=== PATIENT | female | born 1960 | race Caucasian/White ===

== ENCOUNTER → 2018-03-18 | Outpatient (CLI) | payer MEDICARE, MEDICAID ==
[2018-03-18 12:06] LABS: ABSOLUTE EOSINOPHILS # (AUTO) 0.1 10^3/uL (0.0-0.6); ABSOLUTE LYMPHOCYTES (AUTO) 1.5 10^3/uL (0.5-4.7); ABSOLUTE MONOCYTES (AUTO) 0.3 10^3/uL (0.1-1.4); ABSOLUTE NEUT (AUTO) 7.5 10^3/uL (1.7-8.2); BASOPHILS % (AUTO) 0.5 % (0-2); EOSINOPHILS % (AUTO) 1.1 % (0-6); HEMATOCRIT 33.3 % (36.0-47.0); HEMOGLOBIN 11.5 g/dL (12.0-15.5); LYMPHOCYTES % (AUTO) 15.7 % (13-45); MEAN CORPUSCULAR HEMOGLOBIN 34.6 pg (27.0-33.4); MEAN CORPUSCULAR HGB CONC 34.4 g/dL (32.0-36.0); MEAN CORPUSCULAR VOLUME 101 fl (80-97); MONOCYTES % (AUTO) 3.2 % (3-13); PLATELET COUNT 178 10^3/uL (150-450); RED BLOOD COUNT 3.31 10^6/uL (3.72-5.28); RED CELL DISTRIBUTION WIDTH 13.7 % (11.5-14.0); SEGMENTED NEUTROPHILS % (AUTO) 79.5 % (42-78); TOTAL CELLS COUNTED % (AUTO) 100 %; WHITE BLOOD COUNT 9.5 10^3/uL (4.0-10.5)
[2018-03-18 12:28] LABS: ANION GAP 12 (5-19); BLOOD UREA NITROGEN 13 mg/dL (7-20); C-REACTIVE PROTEIN 8.9 mg/L (<10.0); CALCIUM 9.3 mg/dL (8.4-10.2); CARBON DIOXIDE 20 mmol/L (22-30); CHLORIDE 107 mmol/L (98-107); GLUCOSE 85 mg/dL (75-110); POTASSIUM 4.1 mmol/L (3.6-5.0); SODIUM 139.3 mmol/L (137-145)
[2018-03-18 12:48] LABS: ERYTHROCYTE SEDIMENTATION RATE 30 mm/hr (0-30)
== END ==
LOC: OD 10:50
PROVIDERS: ATTEND Orthopaedic Surgery
DX: M25.561 Pain in right knee (principal)
CPT/HCPCS: 36415; 80048; 85025; 85652; 86140

== ENCOUNTER → 2018-08-06 | Outpatient (CLI) | payer MEDICARE, MEDICAID ==
[2018-08-06 12:01] LABS: ABSOLUTE EOSINOPHILS # (AUTO) 0.1 10^3/uL (0.0-0.6); ABSOLUTE LYMPHOCYTES (AUTO) 1.4 10^3/uL (0.5-4.7); ABSOLUTE MONOCYTES (AUTO) 0.4 10^3/uL (0.1-1.4); ABSOLUTE NEUT (AUTO) 4.5 10^3/uL (1.7-8.2); BASOPHILS % (AUTO) 0.4 % (0-2); EOSINOPHILS % (AUTO) 1.5 % (0-6); HEMATOCRIT 36.4 % (36.0-47.0); HEMOGLOBIN 12.7 g/dL (12.0-15.5); LYMPHOCYTES % (AUTO) 22.3 % (13-45); MEAN CORPUSCULAR HEMOGLOBIN 34.8 pg (27.0-33.4); MEAN CORPUSCULAR HGB CONC 34.8 g/dL (32.0-36.0); MEAN CORPUSCULAR VOLUME 100 fl (80-97); PLATELET COUNT 144 10^3/uL (150-450); RED BLOOD COUNT 3.65 10^6/uL (3.72-5.28); RED CELL DISTRIBUTION WIDTH 13.9 % (11.5-14.0); SEGMENTED NEUTROPHILS % (AUTO) 69.8 % (42-78); TOTAL CELLS COUNTED % (AUTO) 100 %; WHITE BLOOD COUNT 6.5 10^3/uL (4.0-10.5)
[2018-08-06 12:13] LABS: APPEARANCE,URINE SLIGHTLY-CLOUDY; BILIRUBIN,URINE NEGATIVE (NEGATIVE); COLOR,URINE YELLOW; GLUCOSE, URINE NEGATIVE (NEGATIVE); KETONES,URINE TRACE mg/dL (NEGATIVE); LEUKOCYTE ESTERASE,URINE NEGATIVE (NEGATIVE); NITRITE,URINE NEGATIVE (NEGATIVE); PROTEIN,URINE NEGATIVE (NEGATIVE); URINE SPECIFIC GRAVITY 1.017; UROBILINOGEN,URINE NEGATIVE mg/dL (<2.0)
[2018-08-06 12:25] LABS: ANION GAP 14 (5-19); BLOOD UREA NITROGEN 11 mg/dL (7-20); CALCIUM 9.4 mg/dL (8.4-10.2); CARBON DIOXIDE 19 mmol/L (22-30); CHLORIDE 104 mmol/L (98-107); GLUCOSE 92 mg/dL (75-110); POTASSIUM 4.5 mmol/L (3.6-5.0); SODIUM 137.3 mmol/L (137-145)
--- NOTE | 2018-08-06 12:44 | RADIOLOGY REPORT (SQ) ---
EXAM DESCRIPTION: CHEST PA/LATERAL COMPLETED DATE/TIME: 08/06/2018 11:28 am REASON FOR STUDY: PRE-OP COMPARISON: None. TECHNIQUE: Frontal and lateral radiographic views of the chest acquired. NUMBER OF VIEWS: Two view. LIMITATIONS: None. FINDINGS: LUNGS AND PLEURA: No opacities, masses or pneumothorax. No pleural effusion. MEDIASTINUM AND HILAR STRUCTURES: No masses or contour abnormalities. HEART AND VASCULAR STRUCTURES: Heart normal size. No evidence for failure. BONES: No acute findings. HARDWARE: None in the chest. OTHER: No other significant finding. IMPRESSION: NO SIGNIFICANT RADIOGRAPHIC FINDING IN THE CHEST. TECHNICAL DOCUMENTATION: JOB ID: [id number] [employer]- All Rights Reserved Reading location - IP/workstation name: [email or web address]
--- NOTE | 2018-08-07 07:49 | EKG REPORT ---
SEVERITY:- NORMAL ECG - SINUS RHYTHM : Confirmed by: Vilma Vang MD 07-Aug-2018 07:49:03
== END ==
LOC: OD 10:49
PROVIDERS: ATTEND Orthopaedic Surgery
DX: Z01.810 Encounter for preprocedural cardiovascular examination (principal); Z01.812 Encounter for preprocedural laboratory examination; Z01.818 Encounter for other preprocedural examination
CPT/HCPCS: 36415; 71046; 80048; 81001; 85025; 93005; 93010

== ENCOUNTER 2018-08-30 05:32 | Inpatient (IN) | payer MEDICARE, MEDICAID ==
[~2018-08-30 05:32] MED LIST: BUPIVACAINE INJ/PF LIPOSOME/PF 266 MG/20 ML SDV IJ PRN; CEFAZOLIN INJ 1 GM VIAL IV PRN; IBUPROFEN 800 MG/NS 250 ML IV PRN; LACTATED RINGERS 1000 ML IV PRN; LANSOPRAZOLE 15 MG TAB.RAP.DR PO PRN; LIDOCAINE 0.5% INJ-PF (5 MG/ML) 50 ML SDV SUBCUT PRN; OXYCODONE HCL SR 10 MG TABLET PO PRN; VANCOMYCIN HCL 1,000 MG in DEXTROSE 5%-WATER 250 ML IV PRN
[2018-08-30] MEDS ORDERED: CEFAZOLIN INJ 1 GM VIAL ONE (05:45)
[2018-08-30] MEDS ORDERED: OXYCODONE HCL SR 10 MG TABLET PO ONE (05:45)
[2018-08-30] MEDS ORDERED: LANSOPRAZOLE 15 MG TAB.RAP.DR ONE (05:45)
[2018-08-30] MEDS ORDERED: MIDAZOLAM 2 MG/2 ML INJ ONE (06:27)
[2018-08-30] MEDS ORDERED: FENTANYL CITRATE INJ/PF 100 MCG/2 ML AMPUL ONE (06:27)
[2018-08-30] MEDS ORDERED: ONDANSETRON HCL INJ/PF 4 MG/2 ML SDV ONE (06:27)
[2018-08-30] MEDS ORDERED: DEXAMETHASONE SOD PHOSPHATE INJ 4 MG/1 ML VIAL ONE (06:27)
[2018-08-30] MEDS ORDERED: LIDOCAINE 2% INJ-PF (20 MG/ML) 10 ML AMPUL ONE (06:27)
[2018-08-30] MEDS ORDERED: PROPOFOL INJ 200 MG/20 ML VIAL IV ONE (06:28)
[2018-08-30] MEDS ORDERED: ACETAMINOPHEN 1,000 MG/100 ML RTUPB IV ONE (06:28)
[2018-08-30] MEDS ORDERED: BUPIVACAINE HCL/DEX-WATER/PF 15 MG/2 ML AMPULE ONE (06:29)
[2018-08-30] MEDS ORDERED: BUPIVACAINE HCL 0.25% /EPINEPHRINE INJ/PF 30 ML SDV ONE (07:08)
[2018-08-30] MEDS ORDERED: THROMBIN (BOVINE) TOPICAL 20000 UNIT VIAL ONE (07:08)
[2018-08-30] MEDS ORDERED: VANCOMYCIN HCL INJ 1000 MG VIAL ONE (07:33)
[2018-08-30] MEDS ORDERED: DIPHENHYDRAMINE HCL 50 MG/ML VIAL IV PRN ×2 (08:05→09:04)
[2018-08-30] MEDS ORDERED: PROMETHAZINE HCL INJ 25 MG/1 ML VIAL IV PRN ×2 (08:05)
[2018-08-30] MEDS ORDERED: ONDANSETRON HCL INJ/PF 4 MG/2 ML SDV IV PRN ×2 (08:05→09:04)
[2018-08-30] MEDS ORDERED: FENTANYL CITRATE INJ/PF 100 MCG/2 ML AMPUL IV PRN ×3 (08:05)
[2018-08-30] MEDS ORDERED: MEPERIDINE HCL/PF INJ 25 MG/1 ML DISP.SYRIN IV PRN (08:05)
[2018-08-30] MEDS ORDERED: MORPHINE SULFATE 10 MG/ML INJ IV PRN ×4 (08:05→09:04)
--- NOTE | 2018-08-30 09:03 | Operative Report ---
Operative Report DATE OF SURGERY: 08/30/18 PREOPERATIVE DIAGNOSIS: Failed right lateral unicompartmental knee arthroplasty OPERATION: Revision right knee arthroplasty SURGEON: INES BAEZ ANESTHESIA: GA TISSUE REMOVED OR ALTERED: Implants to CSS, cultures to micro, bone to pathology ESTIMATED BLOOD LOSS: 100 PROCEDURE: Implants used: Femur: Joyce triathlon size 4 PS femur Tibia: 4 tibia with a 50 mm stem Tibial liner: 13 mm PS insert Patella: 35 mm oval patella Procedure with the patient supine on the operating table the right the limb is prepped and draped in a sterile fashion. The limb was elevated for exsanguination and the tourniquet inflated to 280 torr. The patient has had a extensive lateral parapatellar incision in the past and this is utilized again. The capsule was opened and cultures were sent x2 to microbiology. The underlying lateral femoral condyle implant is mobilizing using a TPS saw and then removed with an osteotome. Access is obtained to the femoral canal through the intracondylar notch and intramedullary minutes mentation is used to resect 10 mm of distal femur in 5 degrees of valgus. Sizing guide indicates a size 4 femur and appropriate cutting jig is then used to fashion anterior posterior and chamfer cuts. A posterior stabilized box was next cut. A trial reduction femur was performed and felt to be adequate. Attention was now turned to the tibia. Using an extramedullary alignment system 9 mm resected off the ileal tibial plateau. This resulted in just a shaving of the lateral tibial plateau. The tibia was then prepared using a series of reamers and punches to accept the tibial keel. A trial reduction of the tibia is performed this is judged to be adequate. Next the femur is placed in position followed by the tibia with a 13 mm tibial PS spacer. This gives full extension and central patellofemoral tracking. The articular surface of the patella was resected using oscillating saws. The articular surfaces were copiously irrigated with pulse lavage. Subsequent polymethylmethacrylate with vancomycin is mixed. Vancomycin is used because of the patient's HIV status and the fact that she is immunocompromise. PMMA was then used to cement the above implants in place. Following adequate curing of cement excess cement was removed. The tourniquet is deflated. The wound is manjinder care with pulse lavage. Hemostasis obtained with electrocautery. The final 13 mm PS insert is impacted into the tibia. The wound was then closed in layers using interrupted Vicryl on the capsule and nylon on the skin. Patient's return to the PACU in satisfactory condition.
[2018-08-30] MEDS ORDERED: ACETAMINOPHEN 325 MG TABLET PO PRN (09:04)
[2018-08-30] MEDS ORDERED: ONDANSETRON 4 MG TAB.RAPDIS PO PRN (09:04)
[2018-08-30] MEDS ORDERED: MAG HYDROX/AL HYDROX/SIMETH SUSP 30 ML UDCUP PO PRN (09:04)
[2018-08-30] MEDS ORDERED: RINGERS SOLUTION,LACTATED 1,000 ML IV PRN (09:04)
[2018-08-30] MEDS ORDERED: MORPHINE SULFATE 10 MG/ML INJ ONE (09:38)
[2018-08-30] MEDS ORDERED: (PENDING PHARMACY ID) (Quetiapine Fumarate [Seroquel] 50 MG) PO SCH (10:00)
[2018-08-30] MEDS ORDERED: (PENDING PHARMACY ID) (Dolutegravir Sodium [Tivicay] 50 MG) PO SCH (10:00)
[2018-08-30] MEDS ORDERED: ARIPIPRAZOLE 15 MG PO SCH (10:00)
[2018-08-30] MEDS ORDERED: (PENDING PHARMACY ID) (Emtricitabine/Tenofov Alafenam [Descovy 200-25 Mg Tablet] 1 TAB) PO SCH (10:00)
[2018-08-30] MEDS ORDERED: (PENDING PHARMACY ID) (Fluoxetine Hcl [Fluoxetine Hcl] 80 MG) PO SCH (10:00)
[2018-08-30] MEDS ORDERED: TRANEXAMIC ACID INJ/PF 1,000 MG/10 ML SDV IV ONE ×2 (10:23→11:00)
--- NOTE | 2018-08-30 10:24 | RADIOLOGY REPORT (SQ) ---
EXAM DESCRIPTION: KNEE RIGHT 2 VIEWS COMPLETED DATE/TIME: 08/30/2018 10:08 am REASON FOR STUDY: Post OP -Long Cassette in PACU M17.11 UNILATERAL PRIMARY OSTEOARTHRITIS, RIGHT KN EE COMPARISON: None. NUMBER OF VIEWS: Two views portable, right knee TECHNIQUE: Digital radiographic images of the right knee post-procedure. LIMITATIONS: None. FINDINGS: BONES: No worrisome or unexpected findings post-procedure. DEVICE: Cemented total knee replacement with patellar resurfacing. SOFT TISSUES: No worrisome findings. Expected postoperative soft tissue changes. IMPRESSION: SATISFACTORY POSTOPERATIVE RIGHT KNEE. TECHNICAL DOCUMENTATION: JOB ID: [id number] [employer]- All Rights Reserved Reading location - IP/workstation name: [email or web address]
[2018-08-30] MEDS ORDERED: PHENYLEPHRINE HCL INJ/PF 10 MG/1 ML SDV ONE (12:39)
[2018-08-30] MEDS: MORPHINE SULFATE 10 MG/ML INJ IV PRN ×2 (13:36→19:04)
[2018-08-30] MEDS: BENZTROPINE MESYLATE 1 MG TABLET PO SCH (14:19)
[2018-08-30] MEDS: ASPIRIN 81 MG TABLET, ENT COATED PO SCH (14:20)
[2018-08-30] MEDS: SENNOSIDES/DOCUSATE 8.6-50 MG 1 EACH TABLET PO SCH ×2 (14:20→19:04)
[2018-08-30] MEDS: PRENATAL VITAMIN W DHA CAPSULE PO SCH (14:20)
[2018-08-30] MEDS: IBUPROFEN 800 MG in NORMAL SALINE 250 ML IV SCH ×2 (16:02→22:01)
[2018-08-30] MEDS: OXYCODONE HCL IR 5 MG TABLET PO PRN (16:14)
[2018-08-30] MEDS: GABAPENTIN 400 MG CAPSULE PO SCH ×2 (19:04→23:32)
[2018-08-30] MEDS ORDERED: VANCOMYCIN HCL 1,000 MG in DEXTROSE 5%-WATER 250 ML IV ONE (21:00)
[2018-08-30] MEDS: OXYCODONE HCL SR 10 MG TABLET PO SCH (22:00)
[2018-08-30] MEDS ORDERED: QUETIAPINE FUMARATE 25 MG TABLET PO PRN (22:23)
[2018-08-30] MEDS ORDERED: TRAZODONE HCL 50 MG TABLET PO ONE (23:00)
[2018-08-31] MEDS: IBUPROFEN 800 MG in NORMAL SALINE 250 ML IV SCH ×3 (05:55→21:15)
[2018-08-31] MEDS: GABAPENTIN 400 MG CAPSULE PO SCH ×3 (05:58→17:05)
[2018-08-31] MEDS: LEVOTHYROXINE SODIUM 0.05 MG TABLET PO SCH (05:58)
[2018-08-31] MEDS: LANSOPRAZOLE 15 MG TAB.RAP.DR PO SCH (06:01)
[2018-08-31] MEDS: LANSOPRAZOLE 30 MG TAB.RAP.DR PO SCH (06:01)
[2018-08-31 06:16] LABS: HEMATOCRIT 25.5 % (36.0-47.0); HEMOGLOBIN 8.8 g/dL (12.0-15.5); MEAN CORPUSCULAR HGB CONC 34.4 g/dL (32.0-36.0); MEAN CORPUSCULAR VOLUME 102 fl (80-97); PLATELET COUNT 108 10^3/uL (150-450); RED CELL DISTRIBUTION WIDTH 13.4 % (11.5-14.0); WHITE BLOOD COUNT 5.3 10^3/uL (4.0-10.5)
[2018-08-31 06:36] LABS: ANION GAP 6 (5-19); BLOOD UREA NITROGEN 8 mg/dL (7-20); CALCIUM 8.4 mg/dL (8.4-10.2); CARBON DIOXIDE 24 mmol/L (22-30); CHLORIDE 107 mmol/L (98-107); GLUCOSE 102 mg/dL (75-110); POTASSIUM 3.8 mmol/L (3.6-5.0); SODIUM 136.9 mmol/L (137-145)
--- NOTE | 2018-08-31 07:23 | PDOC PROGRESS REPORT ---
Subjective Progress Note for:: 08/31/18 Reason For Visit: FAILED RIGHT KNEE ARTHROPLASTY 57-year-old white female, HIV positive, postop day 1 status post right knee revision arthroplasty. Patient complained of pain overnight. Physical Exam Vital Signs: Temp Pulse Resp BP Pulse Ox 37.1 C 78 18 93/54 L 90 L 08/31/18 03:43 08/31/18 03:43 08/31/18 03:43 08/31/18 03:43 08/31/18 03:43 Intake & Output 08/30/18 08/31/18 09/01/18 06:59 06:59 06:59 Intake Total 0 4987 Output Total 2500 Balance 0 2487 Weight 96 kg General appearance: PRESENT: mild distress, well-developed, well-nourished Head exam: PRESENT: normocephalic Respiratory exam: PRESENT: unlabored Cardiovascular exam: PRESENT: RRR Pulses: PRESENT: +1 pedal pulses bilateral Vascular exam: PRESENT: normal capillary refill GI/Abdominal exam: PRESENT: soft Rectal exam: PRESENT: deferred Extremities exam: PRESENT: other - Right lower extremity dressing clean dry and intact. Distal neurovascular examination is intact. Neurological exam: PRESENT: alert, awake, oriented to person, oriented to place, oriented to time, oriented to situation. ABSENT: motor sensory deficit Psychiatric exam: PRESENT: appropriate affect, normal mood. ABSENT: homicidal ideation, suicidal ideation Skin exam: PRESENT: dry, intact, warm. ABSENT: cyanosis, rash Results Laboratory Results: 08/31/18 05:37 08/31/18 05:37 08/31/18 08/31/18 05:37 05:37 WBC 5.3 RBC 2.50 L Hgb 8.8 L Hct 25.5 L MCV 102 H MCH 35.0 H MCHC 34.4 RDW 13.4 Plt Count 108 L Sodium 136.9 L Potassium 3.8 Chloride 107 Carbon Dioxide 24 Anion Gap 6 BUN 8 Creatinine 0.60 Est GFR ( Amer) > 60 Est GFR (Non-Af Amer) > 60 Glucose 102 Calcium 8.4 Impressions: Knee X-Ray 08/30/18 09:05 IMPRESSION: SATISFACTORY POSTOPERATIVE RIGHT KNEE. Status: Imported from PACS Assessment & Plan - Diagnosis (1) Mechanical complication of knee prosthesis Qualifiers: Encounter type: initial encounter Qualified Code(s): T84.098A - Other mechanical complication of other internal joint prosthesis, initial encounter; Z96.659 - Presence of unspecified artificial knee joint Is this a current diagnosis for this admission?: Yes Plan: Patient to be mobilized with physical therapy and weightbearing as tolerated basis. Anticipate the need for shelter facility placement when bed available. - Time Time Spent with patient: 15-24 minutes Anticipated discharge: SNF Within: when bed available
[2018-08-31] MEDS: OXYCODONE HCL IR 5 MG TABLET PO PRN ×2 (07:36→13:36)
[2018-08-31] MEDS: PRENATAL VITAMIN W DHA CAPSULE PO SCH (09:35)
[2018-08-31] MEDS: SENNOSIDES/DOCUSATE 8.6-50 MG 1 EACH TABLET PO SCH ×2 (09:35→17:05)
[2018-08-31] MEDS: FLUOXETINE HCL 20 MG CAPSULE PO SCH (09:36)
[2018-08-31] MEDS: ASPIRIN 81 MG TABLET, ENT COATED PO SCH (09:36)
[2018-08-31] MEDS: BENZTROPINE MESYLATE 1 MG TABLET PO SCH (09:36)
[2018-08-31] MEDS: QUETIAPINE FUMARATE 25 MG TABLET PO SCH (09:37)
[2018-08-31] MEDS: ARIPIPRAZOLE 5 MG TABLET PO SCH (09:37)
[2018-08-31] MEDS: OXYCODONE HCL SR 10 MG TABLET PO SCH ×2 (09:37→21:13)
[2018-08-31] MEDS: MORPHINE SULFATE 10 MG/ML INJ IV PRN (17:04)
[2018-08-31] MEDS: TRAZODONE HCL 50 MG TABLET PO SCH (21:13)
[2018-09-01] MEDS: GABAPENTIN 400 MG CAPSULE PO SCH ×4 (00:14→18:10)
[2018-09-01] MEDS: MORPHINE SULFATE 10 MG/ML INJ IV PRN ×3 (00:15→21:14)
[2018-09-01] MEDS: LEVOTHYROXINE SODIUM 0.05 MG TABLET PO SCH (05:05)
[2018-09-01] MEDS: LANSOPRAZOLE 30 MG TAB.RAP.DR PO SCH (05:06)
[2018-09-01] MEDS: IBUPROFEN 800 MG in NORMAL SALINE 250 ML IV SCH (05:07)
[2018-09-01] MEDS: LANSOPRAZOLE 15 MG TAB.RAP.DR PO SCH (05:11)
[2018-09-01 06:05] LABS: HEMATOCRIT 25.1 % (36.0-47.0); HEMOGLOBIN 8.6 g/dL (12.0-15.5); MEAN CORPUSCULAR HEMOGLOBIN 35.2 pg (27.0-33.4); MEAN CORPUSCULAR HGB CONC 34.5 g/dL (32.0-36.0); MEAN CORPUSCULAR VOLUME 102 fl (80-97); PLATELET COUNT 119 10^3/uL (150-450); RED BLOOD COUNT 2.45 10^6/uL (3.72-5.28); RED CELL DISTRIBUTION WIDTH 13.4 % (11.5-14.0); WHITE BLOOD COUNT 5.7 10^3/uL (4.0-10.5)
[2018-09-01] MEDS: SENNOSIDES/DOCUSATE 8.6-50 MG 1 EACH TABLET PO SCH ×2 (11:00→18:10)
[2018-09-01] MEDS: OXYCODONE HCL SR 10 MG TABLET PO SCH (11:00)
[2018-09-01] MEDS: FLUOXETINE HCL 20 MG CAPSULE PO SCH (11:00)
[2018-09-01] MEDS: ASPIRIN 81 MG TABLET, ENT COATED PO SCH (11:00)
[2018-09-01] MEDS: ARIPIPRAZOLE 5 MG TABLET PO SCH (11:00)
[2018-09-01] MEDS: PRENATAL VITAMIN W DHA CAPSULE PO SCH (11:00)
[2018-09-01] MEDS: BENZTROPINE MESYLATE 1 MG TABLET PO SCH (11:00)
[2018-09-01] MEDS: Dolutegravir Sodium [Tivicay] 50 MG PO SCH (11:01)
[2018-09-01] MEDS: QUETIAPINE FUMARATE 25 MG TABLET PO SCH (11:01)
[2018-09-01] MEDS: Emtricitabine/Tenofov Alafenam [Descovy 200-25 Mg Tablet] PO SCH (11:01)
[2018-09-01] MEDS: OXYCODONE HCL IR 5 MG TABLET PO PRN (18:10)
[2018-09-01] MEDS: NICOTINE 14 MG/24 HR PATCH.TD24 TD SCH (18:18)
[2018-09-01] MEDS: TRAZODONE HCL 50 MG TABLET PO SCH (21:07)
[2018-09-02] MEDS: GABAPENTIN 400 MG CAPSULE PO SCH ×3 (00:30→12:43)
[2018-09-02] MEDS: LEVOTHYROXINE SODIUM 0.05 MG TABLET PO SCH (05:08)
[2018-09-02] MEDS: LANSOPRAZOLE 30 MG TAB.RAP.DR PO SCH (05:09)
[2018-09-02] MEDS: LANSOPRAZOLE 15 MG TAB.RAP.DR PO SCH (05:09)
[2018-09-02] MEDS: MORPHINE SULFATE 10 MG/ML INJ IV PRN (05:16)
[2018-09-02 06:48] LABS: HEMOGLOBIN 8.2 g/dL (12.0-15.5); MEAN CORPUSCULAR HEMOGLOBIN 34.9 pg (27.0-33.4); MEAN CORPUSCULAR HGB CONC 34.1 g/dL (32.0-36.0); MEAN CORPUSCULAR VOLUME 102 fl (80-97); PLATELET COUNT 116 10^3/uL (150-450); RED BLOOD COUNT 2.34 10^6/uL (3.72-5.28); RED CELL DISTRIBUTION WIDTH 13.4 % (11.5-14.0); WHITE BLOOD COUNT 5.6 10^3/uL (4.0-10.5)
--- NOTE | 2018-09-02 07:03 | PDOC TRANSFER SUMMARY ---
General - Admit/Disc Date/PCP Admission Date/Primary Care Provider: 08/30/18 05:32 NANCI GRECO MD Discharge Date: 09/02/18 - Discharge Diagnosis (1) Mechanical complication of knee prosthesis Is this a current diagnosis for this admission?: Yes - Additional Information Resuscitation Status: Full Code Home Medications: Aripiprazole 15 mg PO DAILY 08/19/18 Benztropine Mesylate [Cogentin 1 mg Tablet] 1 mg PO DAILY 08/19/18 Clonidine HCl [Catapres] 0.5 mg PO BIDP PRN 08/19/18 Dolutegravir Sodium [Tivicay] 50 mg PO DAILY 08/19/18 Emtricitabine/Tenofov Alafenam [Descovy 200-25 mg Tablet] 1 tab PO DAILY 08/19/18 Fluoxetine HCl 80 mg PO DAILY 08/19/18 Gabapentin [Neurontin] 800 mg PO Q8 08/19/18 Levothyroxine Sodium 50 mcg PO DAILY 08/19/18 Omeprazole 20 mg PO DAILY 08/19/18 Quetiapine Fumarate [Seroquel] 50 mg PO DAILYP PRN 08/19/18 Tramadol HCl [Ultram] 50 mg PO Q6HP PRN 08/19/18 Trazodone HCl [Desyrel] 300 mg PO QHS 08/30/18 History of Present Illness Admission Date/PCP: 08/30/18 05:32 NANCI GRECO MD History of Present Illness: AMEBRLY HOUSTON is a 57 year old female Patient is a 57-year-old white female status post unicompartmental right knee arthroplasty in the past now with progressive knee pain and functional dis ability secondary to progressive arthritis. Patient is admitted for elective revision arthroplasty. Hospital Course Hospital Course: Patient is admitted through the operating where she undergoes a uncomplicated right knee revision arthroplasty. She is returned to floor in satisfactory condition. She makes reasonable progress progress with physical therapy although she complains of unrelenting pain. Physical Exam Vital Signs: Temp Pulse Resp BP Pulse Ox 37.2 C 83 18 101/59 L 96 09/02/18 04:00 09/01/18 23:36 09/02/18 04:00 09/02/18 04:00 09/02/18 04:00 Intake & Output 09/01/18 09/02/18 09/03/18 06:59 06:59 06:59 Intake Total 1678 1820 Balance 1678 1820 General appearance: PRESENT: mild distress, well-developed, well-nourished Head exam: PRESENT: normocephalic Respiratory exam: PRESENT: unlabored Cardiovascular exam: PRESENT: RRR Pulses: PRESENT: +1 pedal pulses bilateral Vascular exam: PRESENT: normal capillary refill GI/Abdominal exam: PRESENT: soft Rectal exam: PRESENT: deferred Musculoskeletal exam: PRESENT: other - Right knee dressing is clean dry and intact. There is a small blister proximal medial Neurological exam: PRESENT: alert, awake, oriented to person, oriented to place, oriented to time, oriented to situation. ABSENT: motor sensory deficit Psychiatric exam: PRESENT: appropriate affect, normal mood. ABSENT: homicidal ideation, suicidal ideation Skin exam: PRESENT: dry, intact, warm. ABSENT: cyanosis, rash Results Laboratory Results: 09/02/18 05:48 08/31/18 05:37 09/02/18 05:48 WBC 5.6 RBC 2.34 L Hgb 8.2 L Hct 24.0 L MCV 102 H MCH 34.9 H MCHC 34.1 RDW 13.4 Plt Count 116 L Impressions: Knee X-Ray 08/30/18 09:05 IMPRESSION: SATISFACTORY POSTOPERATIVE RIGHT KNEE. Status: Imported from PACS Transfer Plan - Disposition Transfer Plan: Patient to be transferred to a long-term facility for ongoing postoperative rehabilitation. Physical therapy can work on range of motion, strengthening, progressive weightbearing as tolerated relation of the right knee. intermediate can change the right knee dressing as needed. - Time Spent with Patient Time spent with patient: Less than 30 Minutes Qualifiers - * PATIENT BEING DISCHARGED WITH ANY OF THE FOLLOWING DIAGNOSIS: No VTE patient discharged on overlapping Therapy?: Yes Plan Discharge Plan: Transfer to long-term facility when bed available.
[2018-09-02] MEDS: OXYCODONE HCL IR 5 MG TABLET PO PRN ×2 (10:04→16:08)
[2018-09-02] MEDS: ARIPIPRAZOLE 5 MG TABLET PO SCH (10:05)
[2018-09-02] MEDS: NICOTINE 14 MG/24 HR PATCH.TD24 TD SCH (10:05)
[2018-09-02] MEDS: BENZTROPINE MESYLATE 1 MG TABLET PO SCH (10:05)
[2018-09-02] MEDS: ASPIRIN 81 MG TABLET, ENT COATED PO SCH (10:05)
[2018-09-02] MEDS: Dolutegravir Sodium [Tivicay] 50 MG PO SCH (10:06)
[2018-09-02] MEDS: FLUOXETINE HCL 20 MG CAPSULE PO SCH (10:06)
[2018-09-02] MEDS: PRENATAL VITAMIN W DHA CAPSULE PO SCH (10:06)
[2018-09-02] MEDS: QUETIAPINE FUMARATE 25 MG TABLET PO SCH (10:07)
[2018-09-02] MEDS: SENNOSIDES/DOCUSATE 8.6-50 MG 1 EACH TABLET PO SCH (10:07)
[2018-09-02] MEDS: Emtricitabine/Tenofov Alafenam [Descovy 200-25 Mg Tablet] PO SCH (10:07)
[2018-09-02] MEDS ORDERED: MAGNESIUM CITRATE 296 ML BOTTLE PO ONE (16:00)
[2018-09-02 16:18] VITALS: BP 112/49
== END 2018-09-02 17:15 | DRG 465 ==
LOC: INOR 05:32 → 4S 10:55
PROVIDERS: ADMIT Orthopaedic Surgery; ATTEND Orthopaedic Surgery
PROC: 0SRC0EZ Replacement of Right Knee Joint with Articulating Spacer, Open Approach (ICD-10-PCS; 2018-08-30)
PROC: 0SPC0JZ Removal of Synthetic Substitute from Right Knee Joint, Open Approach (ICD-10-PCS; 2018-08-30)
PROC: 0SHC08Z Insertion of Spacer into Right Knee Joint, Open Approach (ICD-10-PCS; 2018-08-30)
PROC: 0SPC0MZ Removal of Lateral Unicondylar Synthetic Substitute from Right Knee Joint, Open Approach (ICD-10-PCS; principal; 2018-08-30 07:30)
DX: T84.092A Other mechanical complication of internal right knee prosthesis, initial encounter (principal); M17.11 Unilateral primary osteoarthritis, right knee; Z21 Asymptomatic human immunodeficiency virus [HIV] infection status; Z96.651 Presence of right artificial knee joint; Z79.899 Other long term (current) drug therapy; Z92.25 Personal history of immunosuppression therapy; Y83.8 Other surgical procedures as the cause of abnormal reaction of the patient, or of later complication, without mention of misadventure at the time of the procedure
CPT/HCPCS: 01402; 36415; 80048; 85027; 87070; 87075; 87077; 87186; 87205; 88305; 88311; 94799; C1713; C1776; J0131; J0690; J1100; J1741; J2250; J2270; J2370; J2405; J2704; J3010; J3370; J3490; J7050; J7060

== ENCOUNTER 2018-10-17 02:45 | Emergency (ER) | payer MEDICARE, MEDICAID ==
[2018-10-17 02:54] VITALS: BP 137/47
[2018-10-17] MEDS ORDERED: OXYCODONE-ACETAMINOPHEN 5-325 MG TABLET PO ONE (03:00)
[2018-10-17] MEDS ORDERED: ONDANSETRON 4 MG TAB.RAPDIS PO ONE (03:00)
--- NOTE | 2018-10-17 03:01 | ER Document Report ---
HPI - HPI Patient complains to provider of: right knee pain Time Seen by Provider: 10/17/18 02:51 Pain Level: 4 Context: Patient is a 57-year-old female that comes to the emergency department for chief complaint of sharp right knee pain. She states that she has ongoing trouble with her right knee, she has had surgeries and multiple revisions, most recent one was 08/30/[address] Coles, she is in physical therapy for her knee as well. She states that she was sitting down and suddenly felt very sharp pain in the knee, she states it felt like she "dislocated". She had her knee bent at the time. She states the knee is still throbbing and hurting her. She denies fall injury. She denies fever or chills, nausea or vomiting. She denies any other complaints. - CONSTITUTIONAL Constitutional: DENIES: Fever, Chills - REPRODUCTIVE Reproductive: DENIES: : - MUSCULOSKELETAL Musculoskeletal: REPORTS: Extremity pain - Rt knee Past Medical History - General Information source: Patient - Social History Smoking Status: Current Every Day Smoker Frequency of alcohol use: Occasional Drug Abuse: None Lives with: Family Family History: Reviewed & Not Pertinent Patient has suicidal ideation: No Patient has homicidal ideation: No - Past Medical History Cardiac Medical History: Denies: Hx Atrial Fibrillation, Hx Congestive Heart Failure, Hx Coronary Artery Disease, Hx Heart Attack, Hx Hypercholesterolemia, Hx Hypertension, Hx Peripheral Vascular Disease, Hx Heart Murmur Pulmonary Medical History: Denies: Hx Asthma, Hx Bronchitis, Hx COPD, Hx Sleep Apnea Neurological Medical History: Reports: Hx Seizures - patient states doesn't happen often. Denies: Hx Cerebrovascular Accident Endocrine Medical History: Reports: Hx Hypothyroidism. Denies: Hx Graves' Disease, Hx Hyperthyroidism Renal/ Medical History: Denies: Hx Kidney Stones, Hx Peritoneal Dialysis Malignancy Medical History: Denies: Hx Leukemia GI Medical History: Reports: Hx Gastroesophageal Reflux Disease. Denies: Hx Crohn's Disease, Hx Hiatal Hernia, Hx Irritable Bowel, Hx Liver Failure, Hx Pancreatitis, Hx Ulcer Musculoskeletal Medical History: Reports Hx Arthritis - knees, hips, Denies Hx Fibromyalgia, Denies Hx Multiple Sclerosis, Denies Hx Muscular Dystrophy Psychiatric Medical History: Reports: Hx Depression, Hx Post Traumatic Stress Disorder Denies: Hx Bipolar Disorder, Hx Dementia, Hx Schizophrenia Traumatic Medical History: Reports: Hx Fractures - R knee cap fx, Infectious Medical History: Reports: Hx HIV Past Surgical History: Reports: Hx Section - x1, Hx Hysterectomy, Hx Neurologic Surgery - back, Hx Orthopedic Surgery - RT knee. Denies: Hx Appendectomy, Hx Bowel Surgery, Hx Cholecystectomy, Hx Colostomy, Hx Coronary Artery Bypass Graft, Hx Gastric Bypass Surgery, Hx Herniorrhaphy, Hx Mastectomy, Hx Pacemaker, Hx Tonsillectomy, Hx Tubal Ligation - Immunizations Immunizations up to date: Yes Hx Diphtheria, Pertussis, Tetanus Vaccination: Yes Vertical Provider Document - CONSTITUTIONAL General Appearance: WD/WN, Other - Patient appears slightly uncomfortable but does not appear to be in any severe distress - INFECTION CONTROL TRAVEL OUTSIDE OF THE [place] IN LAST 30 DAYS: No - HEENT HEENT: Atraumatic, Normocephalic - NECK Neck: Normal Inspection - RESPIRATORY Respiratory: Breath Sounds Normal, No Respiratory Distress - CARDIOVASCULAR Cardiovascular: Regular Rate, Regular Rhythm - GI/ABDOMEN Gastrointestinal: Abdomen Soft, Abdomen Non-Tender - BACK Back: Normal Inspection - MUSCULOSKELETAL/EXTREMETIES Musculoskeletal/Extremeties: MAEW, FROM, Tender - There is swelling of the right knee compared to the left, this is mainly over the area surrounding the patella, there is tenderness over this area but this is mild, there are multiple surgical scars which are old, range of motion is present but painful, there is some grinding felt with performing range of motion tests. No abnormal erythema or heat to the area. Normal thigh, leg, ankle, and distal neurovascular exam. - NEURO Level of Consciousness: Awake, Alert, Appropriate - DERM Integumentary: Warm, Dry, No Rash Course - Re-evaluation Re-evalutation: Patient with soft tissue swelling around the right knee, this does not appear new. There are no signs of infection on my evaluation. Patient is afebrile. Range of motion is present but painful. Examination unremarkable otherwise. X- ray showing chronic changes, surgical hardware, no acute findings, no effusion. Discussed with patient. She is asymptomatic on reevaluation. Discussed results. I do not suspect patient dislocated her knee because she had the knee bent when her pain started and her examination does not suggest acute swelling or effusion. Patient has follow-up with orthopedics in 3 days. Lidocaine patch was placed over the knee after discussion. Discussed follow-up and return precautions. Patient states understanding and agreement. - Vital Signs Vital signs: Temp Pulse Resp BP Pulse Ox 98.4 F 18 137/47 H 98 10/17/18 02:52 10/17/18 02:52 10/17/18 02:52 10/17/18 02:52 - Diagnostic Test Radiology reviewed: Image reviewed, Reports reviewed Discharge - Discharge Clinical Impression: Right knee pain Qualifiers: Chronicity: acute Qualified Code(s): M25.561 - Pain in right knee Condition: Stable Disposition: HOME, SELF-CARE Instructions: Oral Narcotic Medication ([facility]) Additional Instructions: The x-ray does not show any concerning finding including no fluid buildup inside the joint or evidence of dislocation or fracture. Ice your knee, elevate it, continue current medications, you have been provided with a small amount of pain medication to take only if this becomes severe. Please see Dr. Coles on Thursday as we discussed. Return to the emergency department for any concerning or worsening symptoms including developing or spreading redness, severe worsening pain or swelling, fever, or any other concerning symptoms. Referrals: NANCI GRECO MD [NO LOCAL MD] - Follow up as needed
--- NOTE | 2018-10-17 03:47 | RADIOLOGY REPORT (SQ) ---
EXAM DESCRIPTION: XR KNEE 4 OR MORE VIEWS COMPLETED DATE/TME: 10/17/2018 03:00 CLINICAL HISTORY: 57 years, Female, sharp sudden pain COMPARISON: 09/09/2018 right knee NUMBER OF VIEWS: 4 TECHNIQUE: 4 view right knee LIMITATIONS: None. FINDINGS: Osteopenia. Status post total right knee arthroplasty. Negative for acute fracture or dislocation. No evidence for joint effusion. IMPRESSION: Right knee arthroplasty. Osteopenia. copyright 2010 [employer]- All Rights Reserved
[2018-10-17] MEDS ORDERED: LIDOCAINE 5% (700 MG) TRANSDERMAL ADH..PATCH TP ONE (03:55)
[2018-10-17] MEDS ORDERED: HYDROCODONE/ACETAMINOPHEN 5-325 MG (6 TAB/ER DISP) PO PRN (03:55)
== END 2018-10-17 08:03 | disposition home or self-care (01) ==
LOC: ER 02:45
DX: M25.561 Pain in right knee (principal); F17.200 Nicotine dependence, unspecified, uncomplicated; Z87.81 Personal history of (healed) traumatic fracture; Z98.890 Other specified postprocedural states; Z21 Asymptomatic human immunodeficiency virus [HIV] infection status
CPT/HCPCS: 99283; 73564; A9270 ×3; S0119

== ENCOUNTER → 2020-04-05 | Day surgery (SDC) | payer MEDICARE, MEDICAID | LOC: RAD 10:00 | PROVIDERS: ATTEND Orthopaedic Surgery | DX: R69 Illness, unspecified (principal) ==

== ENCOUNTER 2020-05-22 08:09 | Day surgery (SDC) | payer MEDICARE, MEDICAID ==
[2020-05-22 09:18] LABS: INTERNATIONAL RATION (INR) 0.91; PROTHROMBIN TIME 12.5 SEC (11.4-15.4)
[2020-05-22 11:30] LABS: PARTIAL THROMBOPLASTIN TIME 25.5 SEC (23.5-35.8)
[2020-05-22 13:37] VITALS: BP 112/61
--- NOTE | 2020-05-22 13:51 | RADIOLOGY REPORT (SQ) ---
EXAM DESCRIPTION: MYELOGRAM LUMBAR; CT LUMBAR SPINE WITH IMAGES COMPLETED DATE/TIME: 05/22/2020 11:27 am; 05/22/2020 11:22 am REASON FOR STUDY: spinal stenosis of lumbar region M48.062 SPINAL STENOSIS, LUMBAR REGION WITH NEUR OGENIC DANIELA Z79.01 [facility] (CURRENT) USE OF ANTICOAGULANTS COMPARISON: None. FLUOROSCOPY TIME: 2.2 minutes 11 images saved to PACS. TECHNIQUE: Fluoroscopic guided lumbar myelogram. LIMITATIONS: None. PROCEDURE: After written consent and assessment were obtained, the patient was brought into the fluo roscopy room and placed prone on the table. The patient's lower back was prepped in a sterile fashio n and an entry site was selected under live fluoroscopic guidance. The entry site was anesthetized wi th 1% lidocaine. The spinal needle was advanced through the skin and into the thecal sac at the level of L3-4. Contrast was injected into the thecal sac. Following the procedure the needle was removed and a sterile bandage was placed of the site. CONTRAST: 15 mL Omnipaque 180. IMAGES ACQUIRED: 11 fluoroscopic images. TECHNIQUE: After performing lumbar myelogram, axial images were acquired through the lumbar spine wi thout intravenous contrast. Images reviewed with lung, soft tissue and bone windows. Reconstructed coronal and sagittal MPR images reviewed. All images stored on PACS. All CT scanners at this facility use dose modulation, iterative reconstruction, and/or weight based d osing when appropriate to reduce radiation dose to as low as reasonably achievable (ALARA). [facility]: Dose Right [facility]: CareDose [facility]: Dose Right [facility]: Teradose 4D [facility]: [employer] FINDINGS: SEGMENTATION: Normal. No transitional anatomy. ALIGNMENT: Slight anterolisthesis L3 relative to L2. VERTEBRAL BODIES: No fractures. No dislocation. No acute findings. HARDWARE: Posterior fusion and cage graft L4-5 and L5-S1. DISCS: L1-L2: No significant protrusions. No significant stenosis. L2-L3: Moderate spinal stenosis due to disc herniation and posterior element overgrowth. L3-L4: Mild -moderate spinal stenosis due to disc bulge and posterior element overgrowth. L4-L5: Prior posterior decompression. Evaluation limited by metal artifact. No obvious recurrent st enosis. L5-S1: Posterior decompression. No obvious recurrent stenosis. IMPRESSION: Spinal stenosis L2-3 and L3-4 status post posterior decompression and fusion L4- 5 and L 5-S1. COMMENT: Patient medication list reviewed: Yes- Quality ID# [id number]:Eligible professional attests to doc umenting in the medical record they obtained, updated, or reviewed the patient's current medications. TECHNICAL DOCUMENTATION: JOB ID: [id number] Quality ID # [id number]: Final reports with documentation of one or more dose reduction techniques (e.g., Au tomated exposure control, adjustment of the mA and/or kV according to patient size, use of iterative reconstruction technique) 2010 [employer]- All Rights Reserved Reading location - IP/workstation name: [email or web address]-
--- NOTE | 2020-05-22 13:51 | RADIOLOGY REPORT (SQ) ---
EXAM DESCRIPTION: MYELOGRAM LUMBAR; CT LUMBAR SPINE WITH IMAGES COMPLETED DATE/TIME: 05/22/2020 11:27 am; 05/22/2020 11:22 am REASON FOR STUDY: spinal stenosis of lumbar region M48.062 SPINAL STENOSIS, LUMBAR REGION WITH NEUR OGENIC DANIELA Z79.01 [facility] (CURRENT) USE OF ANTICOAGULANTS COMPARISON: None. FLUOROSCOPY TIME: 2.2 minutes 11 images saved to PACS. TECHNIQUE: Fluoroscopic guided lumbar myelogram. LIMITATIONS: None. PROCEDURE: After written consent and assessment were obtained, the patient was brought into the fluo roscopy room and placed prone on the table. The patient's lower back was prepped in a sterile fashio n and an entry site was selected under live fluoroscopic guidance. The entry site was anesthetized wi th 1% lidocaine. The spinal needle was advanced through the skin and into the thecal sac at the level of L3-4. Contrast was injected into the thecal sac. Following the procedure the needle was removed and a sterile bandage was placed of the site. CONTRAST: 15 mL Omnipaque 180. IMAGES ACQUIRED: 11 fluoroscopic images. TECHNIQUE: After performing lumbar myelogram, axial images were acquired through the lumbar spine wi thout intravenous contrast. Images reviewed with lung, soft tissue and bone windows. Reconstructed coronal and sagittal MPR images reviewed. All images stored on PACS. All CT scanners at this facility use dose modulation, iterative reconstruction, and/or weight based d osing when appropriate to reduce radiation dose to as low as reasonably achievable (ALARA). [facility]: Dose Right [facility]: CareDose [facility]: Dose Right [facility]: Teradose 4D [facility]: SABIA FINDINGS: SEGMENTATION: Normal. No transitional anatomy. ALIGNMENT: Slight anterolisthesis L3 relative to L2. VERTEBRAL BODIES: No fractures. No dislocation. No acute findings. HARDWARE: Posterior fusion and cage graft L4-5 and L5-S1. DISCS: L1-L2: No significant protrusions. No significant stenosis. L2-L3: Moderate spinal stenosis due to disc herniation and posterior element overgrowth. L3-L4: Mild -moderate spinal stenosis due to disc bulge and posterior element overgrowth. L4-L5: Prior posterior decompression. Evaluation limited by metal artifact. No obvious recurrent st enosis. L5-S1: Posterior decompression. No obvious recurrent stenosis. IMPRESSION: Spinal stenosis L2-3 and L3-4 status post posterior decompression and fusion L4- 5 and L 5-S1. COMMENT: Patient medication list reviewed: Yes- Quality ID# [id number]:Eligible professional attests to doc umenting in the medical record they obtained, updated, or reviewed the patient's current medications. TECHNICAL DOCUMENTATION: JOB ID: [id number] Quality ID # [id number]: Final reports with documentation of one or more dose reduction techniques (e.g., Au tomated exposure control, adjustment of the mA and/or kV according to patient size, use of iterative reconstruction technique) 2010 [employer]- All Rights Reserved Reading location - IP/workstation name: [email or web address]-
== END 2020-05-22 13:35 | disposition home or self-care (01) ==
LOC: RAD 08:09
PROVIDERS: ATTEND Orthopaedic Surgery
DX: M48.062 Spinal stenosis, lumbar region with neurogenic claudication (principal); I10 Essential (primary) hypertension; F17.200 Nicotine dependence, unspecified, uncomplicated; Z21 Asymptomatic human immunodeficiency virus [HIV] infection status; Z79.01 Long term (current) use of anticoagulants; Z88.8 Allergy status to other drugs, medicaments and biological substances
CPT/HCPCS: 36415; 72132; 72265; 85610; 85730